=== PATIENT | female | born 1970 | race Hispanic/Latino ===

== ENCOUNTER 2017-08-22 01:06 | Emergency (ER) | payer MEDICAID, OTHER ==
[2017-08-22 01:07] VITALS: BMI 25.7
[2017-08-22 02:16] VITALS: BP 106/61; PULSE 71; RESP 18; TEMP 98; O2SAT 97
--- NOTE | 2017-08-22 03:53 | ED PDOC ---
HPI: CCC, URI, Sore Throat Time Seen by Provider: 08/22/17 02:30 Chief Complaint (Nursing): Cough, Cold, Congestion Chief Complaint (Provider): cough and diarrhea History Per: Patient History/Exam Limitations: no limitations Current Symptoms Are (Timing): Still Present Associated Symptoms: denies: Fever Additional History Per: Family () Additional Complaint(s): Divine Marie, a 47 year old female presents to the Emergency Department complaining of diarrhea and cough onset a week ago. The diarrhea is watery without any trace of blood. Her also has similar symptoms. Reports she has been sharing Augmentin medication with her because they ran out of antibiotics. States she also has a history of heroin abuse, but has been clean since July 28, 2017. Denies fever, nausea, or vomiting. PMD: Provider TBD Past Medical History Reviewed: Historical Data, Nursing Documentation, Vital Signs Vital Signs: Last Vital Signs Temp 98.0 F 08/22/17 02:12 Pulse 71 08/22/17 02:12 Resp 18 08/22/17 02:12 BP 106/61 08/22/17 02:12 Pulse Ox 97 08/22/17 02:12 - Medical History PMH: Anxiety, Depression, Fractures (left ankle 10/07), Gastritis Denies: Diabetes, Hepatitis, HIV, HTN, Chronic Kidney Disease, Seizures, Sexually Transmitted Disease - Surgical History Other surgeries: Left ankle surgery, breast augmentation - Family History Family History: States: Unknown Family Hx - Social History Current smoker - smoking cessation education provided: Yes Drugs: Other (herione abuse) - Immunization History Hx Tetanus Toxoid Vaccination: No Hx Influenza Vaccination: No Hx Pneumococcal Vaccination: No - Home Medications Home Medications: Ambulatory Orders Medication Instructions Recorded Albuterol HFA [Ventolin HFA 90 1 - 2 puff IH Q6 PRN #1 inhaler 08/22/17 mcg/actuation (8 g)] Dicyclomine [Bentyl] 20 mg PO Q12 PRN #20 tab 08/22/17 - Allergies Allergies/Adverse Reactions: Allergies Allergy/AdvReac Type Severity Reaction Status Date / Time No Known Allergies Allergy Verified 08/22/17 02:12 Review of Systems ROS Statement: Except As Marked, All Systems Reviewed And Found Negative Constitutional: Negative for: Fever, Chills, Sweats Respiratory: Positive for: Cough Gastrointestinal: Positive for: Diarrhea (5 days ago). Negative for: Nausea, Vomiting Physical Exam - Reviewed Nursing Documentation Reviewed: Yes - Physical Exam Appears: Positive for: Well, Non-toxic, No Acute Distress Head Exam: Positive for: ATRAUMATIC, NORMAL INSPECTION, NORMOCEPHALIC Skin: Positive for: Normal Color, Warm, Dry Eye Exam: Positive for: Normal appearance, EOMI, PERRL ENT: Positive for: Normal ENT Inspection Neck: Positive for: Normal, Painless ROM. Negative for: Decreased ROM Cardiovascular/Chest: Positive for: Regular Rate, Rhythm. Negative for: Murmur Respiratory: Positive for: Normal Breath Sounds Gastrointestinal/Abdominal: Positive for: Normal Exam Back: Positive for: Normal Inspection Extremity: Positive for: Normal ROM. Negative for: Deformity Neurologic/Psych: Positive for: Alert, Oriented (x3) - ECG O2 Sat by Pulse Oximetry: 97 (RA) Pulse Ox Interpretation: Normal Medical Decision Making Medical Decision Making: Time: 2:58 Initial Impression: -- 47 y/o female with upper respiratory infection and antibiotic-associated diarrhea Initial Plan: --Dicyclimine 20mg PO --Reevaluation Clinical Impression: -- Upper Respiratory Infection Upon provider evaluation patient is medically stable, and requires no further treatment in the ED at this time. Patient will be discharged with Rx Albuterol HFA and Bentyl 20mg. Counseling was provided and all questions were answered regarding diagnosis and need for follow up with PMD. Scribe Attestation: Documented by Cammy Montano, acting as a scribe for Mickey Beck MD Provider Scribe Attestation: All medical record entries made by the Scribe were at my direction and personally dictated by me. I have reviewed the chart and agree that the record accurately reflects my personal performance of the history, physical exam, medical decision making, and the department course for this patient. I have also personally directed, reviewed, and agree with the discharge instructions and disposition. Disposition - Clinical Impression Clinical Impression: Upper respiratory infection - Disposition Disposition: Routine/Home Disposition Time: 03:52 Condition: STABLE Prescriptions: Albuterol HFA [Ventolin HFA 90 mcg/actuation (8 g)] 1 - 2 puff IH Q6 PRN #1 inhaler PRN Reason: Shortness Of Breath Dicyclomine [Bentyl] 20 mg PO Q12 PRN #20 tab PRN Reason: abdominal pain/diarrhea Instructions: Upper Respiratory Infection (ED) Forms: [facility] ([place])
== END 2017-08-22 03:22 | disposition home or self-care (01) ==
LOC: H.ER 01:06
DX: J06.9 Acute upper respiratory infection, unspecified (principal); F17.200 Nicotine dependence, unspecified, uncomplicated; Z86.59 Personal history of other mental and behavioral disorders